=== PATIENT | female | born 1950 | race African-American/Black ===

== ENCOUNTER 2017-02-24 20:20 | Emergency (ER) | payer MEDICARE, MEDICAID ==
[~2017-02-24] VITALS: Ht 160 cm; Wt 75.0 kg
[~2017-02-24 20:20] MED LIST: ATOR10TA PO; CAPE500T15 PO; LEVO500T15 PO; METO50TA5 PO
[2017-02-24 21:55] LABS: BASOPHILS % 0.6 % (0.0-2.0); EOSINOPHILS % 1.9 % (0.0-5.0); HEMATOCRIT. 28.8 % (36.0-48.0); HEMOGLOBIN. 9.1 g/dL (12.0-16.0); LYMPHOCYTES % 30.3 % (20.0-50.0); MONOCYTES % 11.5 % (2.0-8.0); NEUTROPHILS % 55.7 % (40.0-76.0); PLATELET 224 x1000/uL (130-400); RED BLOOD CELL COUNT 3.14 mill/uL (4.2-5.4); RED CELL DISTRIBUTION WIDTH 14.4 % (11.6-14.6)
[2017-02-24 22:05] LABS: CARBON DIOXIDE 19 mEq/L (21-32); CHLORIDE 115 mEq/L (98-107)
[2017-02-24 23:30] VITALS: BP 142/66
== END 2017-02-25 00:49 | disposition home or self-care (01) ==
LOC: ER 21:17
DX: R60.0 Localized edema (principal); N18.9 Chronic kidney disease, unspecified; Z88.0 Allergy status to penicillin; Z88.5 Allergy status to narcotic agent; Z87.891 Personal history of nicotine dependence; Z79.899 Other long term (current) drug therapy; Z95.5 Presence of coronary angioplasty implant and graft
CPT/HCPCS: 36415; 71010; 80053; 85025; 93005; 93970; 99285

== ENCOUNTER 2017-08-20 19:41 | Emergency (ER) | payer MEDICARE, MEDICAID ==
[~2017-08-20] VITALS: Ht 160 cm; Wt 88.0 kg
[~2017-08-20 19:41] MED LIST changes: +ASPI-1159 PO; +CHOL100053 PO; +FURO-152 PO; -LEVO500T15 PO; +LEVO500T2 PO; +METO-539 PO; -METO50TA5 PO; +POTA10CA42 PO
[2017-08-20 21:13] LABS: BASOPHILS % 0.2 % (0.0-2.0); EOSINOPHILS % 0.7 % (0.0-5.0); HEMATOCRIT. 29.7 % (36.0-48.0); HEMOGLOBIN. 9.1 g/dL (12.0-16.0); LYMPHOCYTES % 13.1 % (20.0-50.0); MEAN CORPUSCULAR HEMOGLOBIN 28.6 pg (28.0-32.0); MEAN CORPUSCULAR VOLUME 93.3 fL (81.0-99.0); MEAN PLATELET VOLUME 7.8 fl (7.4-10.4); MONOCYTES % 9.8 % (2.0-8.0); NEUTROPHILS % 76.2 % (40.0-76.0); PLATELET 255 x1000/uL (130-400); RED BLOOD CELL COUNT 3.18 mill/uL (4.2-5.4); RED CELL DISTRIBUTION WIDTH 14.6 % (11.6-14.6)
[2017-08-20] MEDS ORDERED: HYDROCODONE/ACETAMINOPHEN 5/325MG TABLET PO ONE (21:15)
[2017-08-20 21:33] VITALS: BP 128/85
== END 2017-08-20 22:45 | disposition home or self-care (01) ==
LOC: ER 19:59
DX: T81.31XA Disruption of external operation (surgical) wound, not elsewhere classified, initial encounter (principal); N17.9 Acute kidney failure, unspecified; I25.2 Old myocardial infarction; D64.9 Anemia, unspecified; Z88.0 Allergy status to penicillin; Z79.82 Long term (current) use of aspirin; Z85.038 Personal history of other malignant neoplasm of large intestine; Z90.49 Acquired absence of other specified parts of digestive tract; Z95.5 Presence of coronary angioplasty implant and graft; Y83.8 Other surgical procedures as the cause of abnormal reaction of the patient, or of later complication, without mention of misadventure at the time of the procedure; Y92.018 Other place in single-family (private) house as the place of occurrence of the external cause
CPT/HCPCS: 36415; 80048; 85025; 99284

== ENCOUNTER 2017-09-20 13:05 | Inpatient (IN) | payer MEDICARE, MEDICAID ==
[~2017-09-20] VITALS: Ht 160 cm; Wt 96.2 kg
[2017-09-20] MEDS ORDERED: ONDANSETRON HCL 4MG/2ML VIAL IV STA (14:24)
[2017-09-20] MEDS ORDERED: SODIUM CHLORIDE 0.9% 500 ML IV ONE (14:24)
[2017-09-20] MEDS ORDERED: MORPHINE SULFATE 10 MG/ML CPJ IM ONE (14:30)
[2017-09-20 14:52] LABS: BASOPHILS % 0.2 % (0.0-2.0); EOSINOPHILS % 0.2 % (0.0-5.0); HEMATOCRIT. 24.6 % (36.0-48.0); HEMOGLOBIN. 7.8 g/dL (12.0-16.0); LYMPHOCYTES % 10.2 % (20.0-50.0); MEAN CORPUSCULAR HEMOGLOBIN 28.9 pg (28.0-32.0); MEAN CORPUSCULAR VOLUME 90.8 fL (81.0-99.0); MEAN PLATELET VOLUME 7.3 fl (7.4-10.4); MONOCYTES % 6.3 % (2.0-8.0); NEUTROPHILS % 83.1 % (40.0-76.0); PLATELET 246 x1000/uL (130-400); RED BLOOD CELL COUNT 2.71 mill/uL (4.2-5.4); RED CELL DISTRIBUTION WIDTH 15.8 % (11.6-14.6)
[2017-09-20 15:03] LABS: D-DIMER 3.57 mg/L FEU (<0.50); PARTIAL THROMBOPLASTIN TIME 25.9 sec (23.4-31.0); PROTHROMBIN TIME 10.5 sec (9.4-11.6)
[2017-09-20 15:19] LABS: CARBON DIOXIDE 27 mEq/L (21-32); CHLORIDE 100 mEq/L (98-107); CREATINE KINASE 34 IU/L (26-192); TROPONIN I 0.19 ng/mL (0.00-0.04)
[2017-09-20] MEDS ORDERED: IPRATROPIUM/ALBUTEROL 0.5-3(2.5)MG/3ML NEB INH PRN (17:00)
[2017-09-20] MEDS ORDERED: DOCUSATE SODIUM 100MG CAPSULE PO PRN (17:00)
[2017-09-20] MEDS ORDERED: HYDROCODONE/ACETAMINOPHEN 5/325MG TABLET PO PRN (17:00)
[2017-09-20] MEDS ORDERED: CLONIDINE 0.1MG TABLET PO PRN (17:00)
[2017-09-20 20:13] VITALS: BP 128/47
[2017-09-20] MEDS: ENOXAPARIN 30MG/0.3ML SYR SUBCUT SCH (21:00)
[2017-09-20] MEDS ORDERED: TEMAZEPAM 15MG CAPSULE PO PRN (21:00)
[2017-09-20] MEDS ORDERED: IPRATROPIUM/ALBUTEROL 0.5-3(2.5)MG/3ML NEB HHN PRN (21:00)
[2017-09-21] VITALS (16 sets, daily range): BP systolic 92–133; BP diastolic 40–54
[2017-09-21] MEDS ORDERED: ACETAMINOPHEN 650MG SUPP PR PRN (05:30)
[2017-09-21] MEDS ORDERED: LIDOCAINE HCL 1% 20ML VIAL (Pyxis) INJ ONE (07:43)
[2017-09-21] MEDS ORDERED: SODIUM BICARBONATE 4% (2.4MEQ) 5ML VIAL IV ONE (07:43)
[2017-09-21] MEDS ORDERED: FENTANYL CITRATE/PF 50MCG/ML 2ML VIAL ONE (07:56)
[2017-09-21] MEDS ORDERED: CLINDAMYCIN 600MG PREMIX 50 ML IV SCH (08:00)
[2017-09-21] MEDS ORDERED: FENTANYL CITRATE/PF 50MCG/ML 2ML VIAL IV ONE (08:25)
[2017-09-21] MEDS ORDERED: FENTANYL CITRATE/PF 50MCG/ML 2ML VIAL IV NR (08:45)
[2017-09-21 09:13] LABS: CARBON DIOXIDE 23 mEq/L (21-32); CHLORIDE 103 mEq/L (98-107); HDL CHOLESTEROL 30 mg/dL (40-59); LDL CHOLESTEROL 40 mg/dL (5-100); PHOSPHORUS 4.8 mg/dL (2.5-4.9); TROPONIN I 0.16 ng/mL (0.00-0.04)
[2017-09-21 10:41] LABS: BASOPHILS % 0.3 % (0.0-2.0); EOSINOPHILS % 0.3 % (0.0-5.0); HEMATOCRIT. 25.1 % (36.0-48.0); HEMOGLOBIN. 7.8 g/dL (12.0-16.0); LYMPHOCYTES % 9.3 % (20.0-50.0); MEAN CORPUSCULAR HEMOGLOBIN 28.9 pg (28.0-32.0); MEAN CORPUSCULAR VOLUME 92.5 fL (81.0-99.0); MEAN PLATELET VOLUME 7.7 fl (7.4-10.4); NEUTROPHILS % 85.1 % (40.0-76.0); PLATELET 208 x1000/uL (130-400); RED BLOOD CELL COUNT 2.71 mill/uL (4.2-5.4); RED CELL DISTRIBUTION WIDTH 15.8 % (11.6-14.6)
[2017-09-21] MEDS: FUROSEMIDE 40MG/4ML VIAL IV SCH (10:43)
[2017-09-21 13:49] LABS: HEPATITIS B SURFACE ANTIGEN NEGATIVE
[2017-09-21 15:31] LABS: TOTAL IRON BINDING CAPACITY 287 ug/dL (250-450)
[2017-09-21] MEDS: METOPROLOL TARTRATE 25MG TABLET PO SCH (20:24)
[2017-09-21] MEDS ORDERED: ACETAMINOPHEN 325MG TABLET PO PRN (20:30)
[2017-09-21] MEDS: CALCIUM CARBONATE 500MG TABLET CHEW PO PRN (20:47)
[2017-09-21] MEDS: ACETAMINOPHEN 325MG TABLET PO PRN (20:48)
[2017-09-21] MEDS: ENOXAPARIN 30MG/0.3ML SYR SUBCUT SCH (20:49)
[2017-09-21] MEDS: ATORVASTATIN CALCIUM 10MG TABLET PO SCH (20:49)
[2017-09-21] MEDS ORDERED: ATORVASTATIN CALCIUM 20MG TABLET PO SCH (21:00)
[2017-09-22] VITALS: BP 122/52
[2017-09-22 04:00] VITALS: BP 140/47
[2017-09-22 06:32] LABS: BASOPHILS % 0.2 % (0.0-2.0); HEMATOCRIT. 23.8 % (36.0-48.0); HEMOGLOBIN. 7.5 g/dL (12.0-16.0); LYMPHOCYTES % 14.4 % (20.0-50.0); MEAN CORPUSCULAR HEMOGLOBIN 29.4 pg (28.0-32.0); MEAN CORPUSCULAR VOLUME 93.1 fL (81.0-99.0); MEAN PLATELET VOLUME 7.4 fl (7.4-10.4); MONOCYTES % 7.8 % (2.0-8.0); NEUTROPHILS % 77.6 % (40.0-76.0); PLATELET 107 x1000/uL (130-400); RED BLOOD CELL COUNT 2.55 mill/uL (4.2-5.4)
[2017-09-22 07:45] VITALS: BP 109/48
[2017-09-22] MEDS: CALCIUM CARBONATE 500MG TABLET CHEW PO PRN (07:45)
[2017-09-22] MEDS: FUROSEMIDE 40MG/4ML VIAL IV SCH (08:37)
[2017-09-22] MEDS: METOPROLOL TARTRATE 25MG TABLET PO SCH ×2 (08:37→21:00)
[2017-09-22] MEDS: FOLIC ACID/VITAMIN B COMP W-C TABLET PO SCH (08:37)
[2017-09-22 11:51] VITALS: BP 103/40
[2017-09-22] MEDS: PANTOPRAZOLE SODIUM 40 MG/VIAL IV SCH (14:40)
[2017-09-22] MEDS ORDERED: GUAIFENESIN-DM 200MG-20MG/10ML UDC PO PRN (16:00)
[2017-09-22 16:08] VITALS: BP 108/51
[2017-09-22] MEDS: ONDANSETRON HCL 4MG/2ML VIAL IV PRN (16:13)
[2017-09-22 19:28] LABS: HEPATITIS B SURFACE AB < 3.1 mIU/mL
[2017-09-22 20:00] VITALS: BP 102/58
[2017-09-22 20:08] LABS: HEPATITIS B CORE AB IGM NEGATIVE
[2017-09-22] MEDS: ENOXAPARIN 30MG/0.3ML SYR SUBCUT SCH (21:00)
[2017-09-22] MEDS: ATORVASTATIN CALCIUM 10MG TABLET PO SCH (22:20)
[2017-09-23 00:30] VITALS: BP 108/48
[2017-09-23 05:22] VITALS: BP 109/48
[2017-09-23 07:17] LABS: HEMATOCRIT 23.1 % (36.0-48.0); HEMOGLOBIN 7.3 g/dL (12.0-16.0); MEAN CORPUSCULAR HEMOGLOBIN 28.9 pg (28.0-32.0); MEAN CORPUSCULAR VOLUME 91.4 fL (81.0-99.0); PLATELET 94 x1000/uL (130-400); RED BLOOD CELL COUNT 2.53 mill/uL (4.2-5.4); RED CELL DISTRIBUTION WIDTH 15.8 % (11.6-14.6)
[2017-09-23 07:47] VITALS: BP 105/54
[2017-09-23] MEDS: ONDANSETRON HCL 4MG/2ML VIAL IV PRN ×2 (08:40→17:29)
[2017-09-23] MEDS: METOPROLOL TARTRATE 25MG TABLET PO SCH ×2 (09:00→21:31)
[2017-09-23] MEDS: FUROSEMIDE 40MG/4ML VIAL IV SCH (09:21)
[2017-09-23] MEDS: PANTOPRAZOLE SODIUM 40 MG/VIAL IV SCH (09:21)
[2017-09-23] MEDS: FOLIC ACID/VITAMIN B COMP W-C TABLET PO SCH (09:22)
[2017-09-23] MEDS: ACETAMINOPHEN 325MG TABLET PO PRN (09:22)
[2017-09-23] MEDS: ASPIRIN 81MG EC TABLET PO SCH (09:22)
[2017-09-23 11:13] VITALS: BP 123/25
[2017-09-23 14:56] VITALS: BP 111/40
[2017-09-23] MEDS ORDERED: METOCLOPRAMIDE HCL 10MG/2ML VIAL IV PRN (17:45)
[2017-09-23 19:34] VITALS: BP 91/52
[2017-09-23] MEDS: ATORVASTATIN CALCIUM 10MG TABLET PO SCH (21:30)
[2017-09-23] MEDS: ENOXAPARIN 30MG/0.3ML SYR SUBCUT SCH (21:30)
[2017-09-24] VITALS: BP 96/47
[2017-09-24 04:00] VITALS: BP 98/49
[2017-09-24 06:37] LABS: BASOPHILS % 0.2 % (0.0-2.0); EOSINOPHILS % 0.2 % (0.0-5.0); HEMATOCRIT. 22.9 % (36.0-48.0); HEMOGLOBIN. 7.3 g/dL (12.0-16.0); MEAN CORPUSCULAR HEMOGLOBIN 29.1 pg (28.0-32.0); MEAN PLATELET VOLUME 7.8 fl (7.4-10.4); MONOCYTES % 7.9 % (2.0-8.0); NEUTROPHILS % 71.7 % (40.0-76.0); PLATELET 103 x1000/uL (130-400); RED BLOOD CELL COUNT 2.49 mill/uL (4.2-5.4); RED CELL DISTRIBUTION WIDTH 15.8 % (11.6-14.6)
[2017-09-24 08:33] VITALS: BP 90/39
[2017-09-24] MEDS: FUROSEMIDE 40MG/4ML VIAL IV SCH (09:00)
[2017-09-24] MEDS: METOPROLOL TARTRATE 25MG TABLET PO SCH (09:00)
[2017-09-24] MEDS: PANTOPRAZOLE SODIUM 40 MG/VIAL IV SCH (09:20)
[2017-09-24] MEDS: ASPIRIN 81MG EC TABLET PO SCH (09:20)
[2017-09-24] MEDS: FOLIC ACID/VITAMIN B COMP W-C TABLET PO SCH (09:21)
[2017-09-24] MEDS: MIDODRINE HCL 2.5MG TABLET PO SCH ×3 (09:22→17:00)
[2017-09-24 12:46] VITALS: BP 101/52
[2017-09-24 16:05] VITALS: BP 104/52
[2017-09-24] MEDS ORDERED: HEPARIN SODIUM 1,000 UNIT/1ML VIAL IV NR (16:51)
== END 2017-09-24 19:10 | disposition left against medical advice (07) | DRG 194 ==
LOC: ER 13:20 → 6WST 15:55 → EDBEDREQ 15:57 → SUPCPDRO 16:56 → ENRESERV 17:59
PROVIDERS: ADMIT Hospitalist; ATTEND Hospitalist
PROC: 02HV33Z Insertion of Infusion Device into Superior Vena Cava, Percutaneous Approach (ICD-10-PCS; principal; 2017-09-20)
PROC: B548ZZA Ultrasonography of Superior Vena Cava, Guidance (ICD-10-PCS; 2017-09-20)
PROC: B5181ZA Fluoroscopy of Superior Vena Cava using Low Osmolar Contrast, Guidance (ICD-10-PCS; 2017-09-20)
PROC: 5A1D70Z Performance of Urinary Filtration, Intermittent, Less than 6 Hours Per Day (ICD-10-PCS; 2017-09-20)
PROC: 0JH63XZ Insertion of Tunneled Vascular Access Device into Chest Subcutaneous Tissue and Fascia, Percutaneous Approach (ICD-10-PCS; 2017-09-21)
PROC: 02HV33Z Insertion of Infusion Device into Superior Vena Cava, Percutaneous Approach (ICD-10-PCS; 2017-09-21)
PROC: B5181ZA Fluoroscopy of Superior Vena Cava using Low Osmolar Contrast, Guidance (ICD-10-PCS; 2017-09-21)
PROC: B548ZZA Ultrasonography of Superior Vena Cava, Guidance (ICD-10-PCS; 2017-09-21)
PROC: 5A1D70Z Performance of Urinary Filtration, Intermittent, Less than 6 Hours Per Day (ICD-10-PCS; 2017-09-22)
PROC: 5A1D70Z Performance of Urinary Filtration, Intermittent, Less than 6 Hours Per Day (ICD-10-PCS; 2017-09-24)
DX: I13.2 Hypertensive heart and chronic kidney disease with heart failure and with stage 5 chronic kidney disease, or end stage renal disease (principal); N17.0 Acute kidney failure with tubular necrosis; E43 Unspecified severe protein-calorie malnutrition; E11.649 Type 2 diabetes mellitus with hypoglycemia without coma; I50.33 Acute on chronic diastolic (congestive) heart failure; K25.9 Gastric ulcer, unspecified as acute or chronic, without hemorrhage or perforation; N18.5 Chronic kidney disease, stage 5; E87.6 Hypokalemia; E11.22 Type 2 diabetes mellitus with diabetic chronic kidney disease; D63.8 Anemia in other chronic diseases classified elsewhere; I25.10 Atherosclerotic heart disease of native coronary artery without angina pectoris; E88.09 Other disorders of plasma-protein metabolism, not elsewhere classified; D50.9 Iron deficiency anemia, unspecified; E11.21 Type 2 diabetes mellitus with diabetic nephropathy; E78.00 Pure hypercholesterolemia, unspecified; E78.5 Hyperlipidemia, unspecified; G47.00 Insomnia, unspecified; Z53.21 Procedure and treatment not carried out due to patient leaving prior to being seen by health care provider; Z95.5 Presence of coronary angioplasty implant and graft; Z90.49 Acquired absence of other specified parts of digestive tract; Z90.3 Acquired absence of stomach [part of]; Z88.0 Allergy status to penicillin; Z88.5 Allergy status to narcotic agent; Z79.899 Other long term (current) drug therapy; Z79.82 Long term (current) use of aspirin; I25.2 Old myocardial infarction; Z85.028 Personal history of other malignant neoplasm of stomach; Z92.3 Personal history of irradiation; Z92.21 Personal history of antineoplastic chemotherapy; Z82.49 Family history of ischemic heart disease and other diseases of the circulatory system; Z80.9 Family history of malignant neoplasm, unspecified; Z68.37 Body mass index [BMI] 37.0-37.9, adult
CPT/HCPCS: 36415; 36558; 36569; 71010; 74000; 76937; 77001; 80048; 80053; 80061; 82550; 83540; 83550; 83605; 83690; 83880; 83970; 84100; 84443; 84484; 85025; 85027; 85379; 85610; 85730; 86705; 86706; 86803; 87040; 87077; 87086; 87186; 87340; 93005; 93970; 96361; 96372; 96374; 99285; C1725; C1750; C1769; C9113; J1642; J1644; J1650; J1940; J2270; J2405; J2765; J3010; J3490; J7030; J7040; J7050

== ENCOUNTER 2017-09-28 17:26 | Emergency (ER) | payer MEDICARE, MEDICAID ==
[~2017-09-28] VITALS: Ht 160 cm; Wt 84.0 kg
[2017-09-28] MEDS ORDERED: ONDANSETRON HCL 4MG/2ML VIAL IV STA (18:11)
[2017-09-28 18:50] LABS: BG BASE EXCESS -4.3 mmol/L (-2.0-2.0); BG CARBOXYHEMOGLOBIN 0.8 % (0.5-1.5); BG DEOXYHEMOGLOBIN 4.9 % (0.0-5.0); BG FRACTION INSPIRED OXYGEN 21; BG HCO3 ACT 19.8 mmol/L (22.0-26.0); BG METHEMOGLOBIN 0.1 % (0.0-1.5); BG OXYGEN SATURATION 95.1 % (92.0-98.5); BG OXYHEMOGLOBIN 94.2 % (94.0-97.0); BG PCO2 32.6 mmHg (35.0-45.0); BG PH 7.401 (7.350-7.450); BG PO2 81.3 mmHg (75.0-100.0); BG SAMPLE SITE RIGHT RADIAL; BG TOTAL HEMOGLOBIN 9.7 g/dL (12.0-18.0); BG VENT MODE ROOM AIR
[2017-09-28 19:16] LABS: BASOPHILS % 0.2 % (0.0-2.0); EOSINOPHILS % 0.2 % (0.0-5.0); HEMATOCRIT. 26.4 % (36.0-48.0); HEMOGLOBIN. 8.2 g/dL (12.0-16.0); LYMPHOCYTES % 13.5 % (20.0-50.0); MEAN CORPUSCULAR HEMOGLOBIN 28.8 pg (28.0-32.0); MEAN CORPUSCULAR VOLUME 92.7 fL (81.0-99.0); MEAN PLATELET VOLUME 8.1 fl (7.4-10.4); MONOCYTES % 5.1 % (2.0-8.0); PLATELET 158 x1000/uL (130-400); RED BLOOD CELL COUNT 2.85 mill/uL (4.2-5.4); RED CELL DISTRIBUTION WIDTH 15.9 % (11.6-14.6)
[2017-09-28 19:22] LABS: PARTIAL THROMBOPLASTIN TIME 22.1 sec (23.4-31.0); PROTHROMBIN TIME 10.7 sec (9.4-11.6)
[2017-09-28 19:25] LABS: CARBON DIOXIDE 24 mEq/L (21-32); CHLORIDE 107 mEq/L (98-107)
[2017-09-28 19:31] LABS: PHOSPHORUS 4.7 mg/dL (2.5-4.9); TROPONIN I < 0.02 ng/mL (0.00-0.04)
[2017-09-28 19:40] VITALS: BP 112/48
[2017-09-28] MEDS ORDERED: ONDANSETRON 4MG ODT PO ONE (20:30)
[2017-09-28] MEDS ORDERED: DEXTROSE 50% WATER 50ML SYRINGE IV ONE (22:00)
== END 2017-09-28 22:18 | disposition left against medical advice (07) ==
LOC: ER 17:40 → EDBEDREQ 18:25 → CANBEDREQ 21:20 → ER 22:18
DX: R53.1 Weakness (principal); I12.9 Hypertensive chronic kidney disease with stage 1 through stage 4 chronic kidney disease, or unspecified chronic kidney disease; E11.22 Type 2 diabetes mellitus with diabetic chronic kidney disease; E16.1 Other hypoglycemia; N18.9 Chronic kidney disease, unspecified; I25.2 Old myocardial infarction; Z79.82 Long term (current) use of aspirin; Z88.0 Allergy status to penicillin; Z88.5 Allergy status to narcotic agent; Z91.14 Patient's other noncompliance with medication regimen; Z99.2 Dependence on renal dialysis
CPT/HCPCS: 36415; 36600; 71045; 80053; 82375; 82805; 82962; 83690; 84100; 84443; 84484; 85025; 85610; 85730; 93005; 99291; J2405

== ENCOUNTER 2017-10-02 15:01 | Emergency (ER) | payer MEDICARE, MEDICAID ==
[~2017-10-02] VITALS: Ht 167.6 cm; Wt 80.0 kg
[2017-10-02 15:02] VITALS: BP 90/51
== END 2017-10-02 19:04 | disposition left against medical advice (07) ==
LOC: ER 15:01
DX: R53.1 Weakness (principal); Z53.21 Procedure and treatment not carried out due to patient leaving prior to being seen by health care provider